=== PATIENT | male | born 1955 | race Two or more races ===

== ENCOUNTER 2016-12-18 20:57 | Inpatient (IN) | payer OTHER ==
[~2016-12-18] VITALS: Ht 167.6 cm; Wt 122.0 kg
--- NOTE | 2016-12-18 21:15 | NUR ---
61 YO MALE BB SELF. PT IS ALERT X 3, C/O REDNESS AND PAIN ON LEFT LOWER LEG X 2 DAYS. PT AMBULATED TO ER BED WITH STEADY AGIT, SKIN WARMA ND DRY, RR EVEN AND UNLABORED. PT GOWNED, PLACED ON BOTANICAL TECHNICAL OFFICER. AWAITING ORDERS FORM PROVIDER, WILL CONTINUE TO MONITOR
--- NOTE | 2016-12-18 21:17 | NUR ---
MAREN COSTA MPA AT BED SIDE FOR EVAL
[2016-12-18] MEDS ORDERED: VANCOMYCIN 1 GM in IV D5W 250 ML IV STA (21:22)
[2016-12-18] MEDS ORDERED: LEVOFLOXACIN 500 MG /D5W 100ML 500 MG/100 ML PIGGYBACK IV STA (21:22)
[2016-12-18 21:30] LABS: BASOPHILS % (AUTO) 0.2 % (0.0-2.0); EOSINOPHILS # (AUTO) 0.1 /CMM (0.0-0.7); EOSINOPHILS % (AUTO) 1.1 % (0.0-6.0); HEMATOCRIT 41 % (39-51); HEMOGLOBIN 13.2 g/dL (13.5-17.5); LYMPHOCYTES # (AUTO) 2.2 /CMM (0.8-4.8); LYMPHOCYTES % (AUTO) 16.8 % (20.0-44.0); MEAN CORPUSCULAR HEMOGLOBIN 29 PG (26.0-33.0); MEAN CORPUSCULAR HGB CONC 33 g/dl (31.0-36.0); MEAN CORPUSCULAR VOLUME 89 fL (80-96); MONOCYTES # (AUTO) 1.4 /CMM (0.1-1.30); NEUTROPHILS # (AUTO) 9.1 /CMM (1.8-8.9); NEUTROPHILS % (AUTO) 70.9 % (43.0-81.0); PLATELET COUNT (AUTO) 222 /CMM (150-450); RDW COEFFICIENT OF VARIATION 13.2 (11.5-15.0); RED BLOOD CELL COUNT(AUTO) 4.53 MIL/uL (4.5-6.0); WHITE BLOOD COUNT (AUTO) 12.8 K/uL (4.3-11.0)
[2016-12-18] MEDS ORDERED: IV SET PRIMARY PUMP SET 1 EA INFUS.SET MC ONE (21:31)
[2016-12-18] MEDS ORDERED: VANCOMYCIN 1 GM VIAL ONE (21:31)
[2016-12-18] MEDS ORDERED: LEVOFLOXACIN 500 MG /D5W 100ML 100 ML IV ONE (21:31)
[2016-12-18 21:45] LABS: ALBUMIN 3.3 g/dL (3.4-5.0); BILIRUBIN,TOTAL 0.9 mg/dL (0.2-1.0); CALCIUM, SERUM 8.8 mg/dL (8.5-10.1); POTASSIUM 3.3 mmol/L (3.5-5.1); TOTAL PROTEIN, SERUM 8.3 g/dL (6.4-8.2)
[2016-12-18 21:46] LABS: INR 0.96 (0.87-1.13)
[2016-12-18 21:47] LABS: TROPONIN I 0.119 ng/mL (0.00-0.056)
--- NOTE | 2016-12-18 21:52 | NUR ---
URINE SAMPLE OBTAINED AND SENT TO LAB. MEDICATED PT ORDERED
[2016-12-18 22:01] LABS: ALBUMIN 3.4 g/dL (3.4-5.0); BILIRUBIN,DIRECT 0.2 mg/dL (0.0-0.2); BILIRUBIN,TOTAL 0.9 mg/dL (0.2-1.0); TOTAL PROTEIN, SERUM 8.5 g/dL (6.4-8.2)
[2016-12-18] MEDS ORDERED: ASPIRIN 325 MG TABLET PO STA (22:08)
[2016-12-18] MEDS ORDERED: ASPIRIN 325 MG TABLET ONE (22:16)
[2016-12-18 22:21] LABS: APPEARANCE,URINE CLEAR (CLEAR); BILIRUBIN,URINE NEGATIVE (NEGATIVE); BLOOD, URINE 1+ Ery/uL (NEGATIVE); COLOR,URINE YELLOW (YELLOW); KETONES,URINE TRACE (NEGATIVE); LEUKOCYTE ESTERASE ,URINE NEGATIVE (NEGATIVE); NITRITE, URINE NEGATIVE (NEGATIVE); PROTEIN,URINE NEGATIVE (NEGATIVE); UGLUCOSE NEGATIVE (NEGATIVE); UROBILINOGEN,URINE 0.2 EU/dL (0.2)
--- NOTE | 2016-12-18 22:24 | NUR ---
PAGED DR SORAYA COX
[2016-12-18 22:32] LABS: BACTERIA,URINE None seen /HPF (None Seen); SQUAMOUS EPITHELIAL CELL,UR Rare /HPF (None Seen); WBC,URINE 0-2 /HPF (0-3)
[2016-12-18] MEDS ORDERED: LOSA1TAB35 PO (22:33)
[2016-12-18] MEDS ORDERED: CARV3.122 PO (22:33)
[2016-12-18] MEDS ORDERED: SIMV10TA6 PO (22:35)
[2016-12-18] MEDS ORDERED: TAMS0.4C34 PO (22:35)
[2016-12-18] MEDS ORDERED: RANI150C4 PO (22:35)
[2016-12-18] MEDS ORDERED: ASPI-605 PO (22:35)
[2016-12-18 22:50] VITALS: BP 143/75
--- NOTE | 2016-12-18 22:50 | NUR ---
TELE/ROOM SERVICE MANAGER; ADMITTED 61 YEARS OLD MALE PT FROM ER VIA GURNEY ACCOMPANIED BY ER MALE STAFF. PT IS ALERT AND ORIENTED. ECUADOREAN SPEAKING. WITH HL ON LAC # 18 INTACT AND PATENT. PT INFORMATIONS GIVEN BY THE SON KYLE. PT WITH SWELLING ON LT LOWER LEG AND WITH REDNESS. PT INSTRUCTED TO CALL FOR HELP. CALL LIGHT AND URINAL WITHIN REACH. DENIES PAIN. PT. ALSO HAS ELEVATED TROPONIN. DX; NSTEMI, CELLULITIS LT LOWER LEG. LT LOWER ELEVATED WITH PILLOW. PLACED ON BRIM POUNCER. WILL CONTINUE TO MONITOR.
--- NOTE | 2016-12-18 22:59 | NUR ---
TRANSPORTED PT TO TELE BED WITHOUT INCIDENT
[2016-12-18] MEDS ORDERED: Z GUARD REMEDY 2 OZ OINT TP PRN (23:30)
[2016-12-18] MEDS ORDERED: ONDANSETRON HCL/PF 4 MG/2 ML VIAL IVP PRN (23:30)
[2016-12-18] MEDS ORDERED: ENOXAPARIN SODIUM 40 MG/0.4 ML DISP.SYRIN SQ SCH (23:30)
[2016-12-18] MEDS ORDERED: ZOLPIDEM TARTRATE 5 MG TABLET PO PRN (23:30)
[2016-12-18] MEDS ORDERED: ENOXAPARIN SODIUM 40 MG/0.4 ML DISP.SYRIN SQ ONE (23:49)
[2016-12-18] MEDS ORDERED: POTASSIUM CHLORIDE 20 MEQ TAB.PRT.SR PO ONE (23:50)
[2016-12-19] MEDS: POTASSIUM CHLORIDE 20 MEQ TAB.PRT.SR PO SCH ×4 (00:38→13:06)
[2016-12-19 03:21] LABS: BASOPHILS # (AUTO) 0.1 /CMM (0.0-0.2); BASOPHILS % (AUTO) 0.5 % (0.0-2.0); EOSINOPHILS # (AUTO) 0.2 /CMM (0.0-0.7); EOSINOPHILS % (AUTO) 1.3 % (0.0-6.0); HEMATOCRIT 37 % (39-51); HEMOGLOBIN 12.4 g/dL (13.5-17.5); LYMPHOCYTES # (AUTO) 2.8 /CMM (0.8-4.8); LYMPHOCYTES % (AUTO) 22.4 % (20.0-44.0); MEAN CORPUSCULAR HEMOGLOBIN 30 PG (26.0-33.0); MEAN CORPUSCULAR HGB CONC 34 g/dl (31.0-36.0); MEAN CORPUSCULAR VOLUME 89 fL (80-96); MONOCYTES # (AUTO) 1.6 /CMM (0.1-1.30); MONOCYTES % (AUTO) 13.2 % (2.0-12.0); NEUTROPHILS # (AUTO) 7.7 /CMM (1.8-8.9); NEUTROPHILS % (AUTO) 62.6 % (43.0-81.0); PLATELET COUNT (AUTO) 214 /CMM (150-450); RDW COEFFICIENT OF VARIATION 14.4 (11.5-15.0); RED BLOOD CELL COUNT(AUTO) 4.18 MIL/uL (4.5-6.0); WHITE BLOOD COUNT (AUTO) 12.4 K/uL (4.3-11.0)
[2016-12-19 04:02] LABS: ALBUMIN 3.3 g/dL (3.4-5.0); BILIRUBIN,TOTAL 0.9 mg/dL (0.2-1.0); CREATININE 0.9 mg/dL (0.6-1.3); PHOSPHORUS 3.7 mg/dL (2.5-4.9); TOTAL PROTEIN, SERUM 8.6 g/dL (6.4-8.2)
[2016-12-19 04:11] LABS: POTASSIUM 3.1 mmol/L (3.5-5.1)
[2016-12-19 04:15] LABS: FREE PSA 0.83 ng/mL (0.00-45); PROSTATE SPECIFIC ANTIGEN SCR 7.59 ng/mL (0.00-4.00)
[2016-12-19 04:25] VITALS: BP 126/76
[2016-12-19 04:59] LABS: THYROID STIMULATING HORMONE 2.75 uIU/mL (0.358-3.74)
--- NOTE | 2016-12-19 07:00 | NUR ---
TELE/BRAND ADVOCATE; PT SLEPT FAIRLY. PT ON SR 70. DENIES PAIN. CONTINUE TO MONITOR . CALL LIGHT AND URINAL WITHIN REACH. WILL ENDORSE TO THE DAY SHIFT NURSE.
[2016-12-19 07:08] VITALS: BP 130/65
--- NOTE | 2016-12-19 07:15 | NUR ---
LANDING SIGNAL OFFICER OPENING NOTES RECEIVED PT. FROM NIGHTSHIFT NURSE IN STABLE CONDITION. PT. IS A/O X4. NO SOB OR SIGNS OF DISTRESS NOTED. PT. DENIES ANY PAIN TO LEFT LOWER EXTREMITY OR IN GENERAL AT THIS TIME. PT. DENIES ANY CHEST PAIN AT THIS TIME. PT IS SINUS RHYTHM ON THE MONITOR WITH A HR OF 71. IV PRESENT ON LEFT AC 18G PATENT AND INTACT. BED INLOW LOCKED POSITION, SIDE RAILS UP X2, CALL LIGHT WITHIN REACH. WILL CONTINUE TO MONITOR.
[2016-12-19] MEDS ORDERED: FEE PK DOSING 1 MIN EA MC ONE (08:33)
[2016-12-19] MEDS: HYDROCODONE/APAP 10/325MG 1 EA TABLET PO PRN ×3 (08:57→21:16)
[2016-12-19] MEDS: PANTOPRAZOLE 40 MG TABLET.DR PO SCH (08:59)
[2016-12-19] MEDS: ASPIRIN EC 81 MG TABLET.DR PO SCH (08:59)
[2016-12-19] MEDS: LOSARTAN POTASSIUM 50 MG TABLET PO SCH (08:59)
[2016-12-19] MEDS: SIMVASTATIN 10 MG TABLET PO SCH (09:00)
[2016-12-19] MEDS: TAMSULOSIN 0.4 MG CAP.SR.24H PO SCH (09:00)
[2016-12-19] MEDS: HYDROCHLOROTHIAZIDE 25 MG TABLET PO SCH (09:00)
[2016-12-19] MEDS ORDERED: BUMETANIDE INJ 0.25 MG/ML VIAL IV SCH (09:00)
[2016-12-19] MEDS: CARVEDILOL 3.125 MG TABLET PO SCH ×2 (09:00→17:15)
[2016-12-19] MEDS ORDERED: SECONDARY IV SET 1 EA INFUS.SET MC ONE (11:19)
[2016-12-19] MEDS ORDERED: IV NS 0.9% 250 ML IV ONE (11:19)
[2016-12-19] MEDS: VANCOMYCIN 1.25 GM in IV D5W 500 ML IV SCH ×2 (11:41→22:21)
[2016-12-19 12:00] VITALS: BP 127/61
[2016-12-19 16:00] VITALS: BP 116/59
--- NOTE | 2016-12-19 18:56 | NUR ---
BOOK SALESMAN CLOSING NOTES PT. REMAINS IN STABLE CONDITION. ALL NEEDS WERE MET DURING SHIFT AND ORDERS CARRIED OUT ACCORDINGLY. PT. DENIES ANY PAIN AT THIS TIME. ALL SAFETY MEASURES IN PLACE. WILL ENDORSE TO NIGHTSHIFT NURSE FOR ALVARADO
--- NOTE | 2016-12-19 19:40 | NUR ---
RN OPENING NOTES RECEIVED REPORT FROM MARGUERITE RN, CATHERINETU. FOUND Pt AWAKE, RESTING IN BED. FAMILY VISITING AT BEDSIDE. Pt IS A/OX4, VERBAL, ABLE TO MAKE NEEDS KNOWN. NO S/S OF ACUTE DISTRESS OR SOB NOTED. IV ACCESS ON LAC #18G, SL. ON TELE WITH SR 70's. Pt C/O PAIN ON LT LEG, WILL GIVE PAIN MED WHEN DUE. SAFETY MEASURES IN PLACE. BED LOW, LOCKED, HOB ELEVATED, SIDE RAILS UP, CALL LIGHT AND BEDSIDE TABLE WITHIN REACH. WILL CONTINUE TO MONITOR Pt THROUGHOUT THE NIGHT FOR SAFETY.
[2016-12-19 20:00] VITALS: BP 116/66
[2016-12-19 20:14] VITALS: BP 116/66
[2016-12-19] MEDS: ENOXAPARIN SODIUM 40 MG/0.4 ML DISP.SYRIN SQ SCH (21:18)
[2016-12-20 01:02] VITALS: BP 118/57
[2016-12-20] MEDS: HYDROCODONE/APAP 10/325MG 1 EA TABLET PO PRN ×3 (02:41→15:42)
[2016-12-20 04:44] VITALS: BP 125/86
[2016-12-20 06:36] LABS: CALCIUM, SERUM 8.5 mg/dL (8.5-10.1); CREATININE 0.9 mg/dL (0.6-1.3); POTASSIUM 3.6 mmol/L (3.5-5.1)
--- NOTE | 2016-12-20 06:40 | NUR ---
RN CLOSING NOTES NO SIGNIFICANT CHANGES TO Pt's CONDITION. ALL NEEDS MET AND ATTENDED TO. SAFETY MEASURES IN PLACE. WILL ENDORSE TO DAYSHIJUAN C RN FOR Pt's ALVARADO. TELE READING SR 70's.
--- NOTE | 2016-12-20 07:15 | NUR ---
CASE FITTER OPENING NOTES RECEIVED PT. FROM NIGHTSHIFT NURSE IN STABLE CONDITION. PT. IS A/O X4. NO SOB OR SIGNS OF DISTRESS NOTED. PT. DENIES ANY PAIN AT THIS TIME. PT. DENIES ANY CHEST PAIN AT THIS TIME. PT IS SINUS RHYTHM ON THE MONITOR WITH A HR OF 73. IV PRESENT ON LEFT AC 18G PATENT AND INTACT. BED IN LOW LOCKED POSITION, SIDE RAILS UP X2, CALL LIGHT WITHIN REACH. WILL CONTINUE TO MONITOR.
[2016-12-20 08:00] VITALS: BP 140/62
[2016-12-20] MEDS: POTASSIUM CHLORIDE 20 MEQ TAB.PRT.SR PO SCH (08:06)
[2016-12-20] MEDS: TAMSULOSIN 0.4 MG CAP.SR.24H PO SCH (08:06)
[2016-12-20] MEDS: PANTOPRAZOLE 40 MG TABLET.DR PO SCH (08:06)
[2016-12-20] MEDS: HYDROCHLOROTHIAZIDE 25 MG TABLET PO SCH (08:06)
[2016-12-20] MEDS: LOSARTAN POTASSIUM 50 MG TABLET PO SCH (08:07)
[2016-12-20] MEDS: ASPIRIN EC 81 MG TABLET.DR PO SCH (08:07)
[2016-12-20] MEDS: SIMVASTATIN 10 MG TABLET PO SCH (08:07)
[2016-12-20] MEDS: CARVEDILOL 3.125 MG TABLET PO SCH ×2 (08:07→16:41)
[2016-12-20 08:58] LABS: BASOPHILS % (AUTO) 0.3 % (0.0-2.0); EOSINOPHILS # (AUTO) 0.2 /CMM (0.0-0.7); HEMATOCRIT 36 % (39-51); HEMOGLOBIN 12.2 g/dL (13.5-17.5); LYMPHOCYTES # (AUTO) 2.5 /CMM (0.8-4.8); MEAN CORPUSCULAR HEMOGLOBIN 30 PG (26.0-33.0); MEAN CORPUSCULAR HGB CONC 34 g/dl (31.0-36.0); MEAN CORPUSCULAR VOLUME 89 fL (80-96); MONOCYTES # (AUTO) 1.6 /CMM (0.1-1.30); MONOCYTES % (AUTO) 12.9 % (2.0-12.0); NEUTROPHILS % (AUTO) 64.8 % (43.0-81.0); PLATELET COUNT (AUTO) 193 /CMM (150-450); RDW COEFFICIENT OF VARIATION 14.2 (11.5-15.0); RED BLOOD CELL COUNT(AUTO) 4.08 MIL/uL (4.5-6.0); WHITE BLOOD COUNT (AUTO) 12.3 K/uL (4.3-11.0)
[2016-12-20] MEDS ORDERED: FUROSEMIDE 20 MG/2 ML VIAL IV ONE (10:00)
[2016-12-20] MEDS: VANCOMYCIN 1.25 GM in IV D5W 500 ML IV SCH ×2 (10:10→23:23)
[2016-12-20 12:15] LABS: *SPE A/G RATIO 0.8 (0.7-1.7); *SPE ALBUMIN 3.1 g/dL (2.9-4.4); *SPE ALPHA-1-GLOBULIN 0.4 g/dL (0.0-0.4); *SPE ALPHA-2-GLOBULIN 1.1 g/dL (0.4-1.0); *SPE BETA GLOBULIN 1.1 g/dL (0.7-1.3); *SPE GLOBULIN, TOTAL 3.7 g/dL (2.2-3.9); *SPE M-SPIKE Not Observed g/dL (Not Observed); *SPE PROTEIN TOTAL 6.8 g/dL (6.0-8.5); *SPEGAMMA GLOBULIN 1.2 g/dL (0.4-1.8)
[2016-12-20 16:00] VITALS: BP 124/54
--- NOTE | 2016-12-20 18:25 | NUR ---
MS RN CLOSING NOTES PT. REMAINS IN STABLE CONDITION. ALL NEEDS WERE MET AND ANTICIPATED FOR DURING SHIFT ALL ORDERS WERE CARRIED OUT ACCORDINGLY. PT. DENIES ANY PAIN AT THIS TIME. ALL SAFETY MEASURES IN PLACE. THERE WERE NO ACUTE CHANGES IN CONDITION DURING SHIFT. WILL ENDORSE TO NIGHTSHIFT NURSE FOR ALVARADO
--- NOTE | 2016-12-20 19:15 | NUR ---
RN OPEN NOTES RECEIVED PATIENT AWAKE IN BED WITH FAMILY AT BEDSIDE. A/O X3. NO SIGNS OF DISTRESS OR DISCOMFORT. BREATHING EVEN AND UNLABORED. DENIES ANY PAIN AT THIS TIME. IV ACCESS IN LAC, PATENT AND INTACT, NO SIGNS OF REDNESS OR INFILTRATION. BED IN LOW LOCKED POSITION WITH SIDE RAILS X2. CALL LIGHT WITHIN REACH. WILL CONTINUE TO MONITOR.
[2016-12-20 20:00] VITALS: BP 138/60
[2016-12-20 20:13] VITALS: BP 138/60
[2016-12-20] MEDS: ENOXAPARIN SODIUM 40 MG/0.4 ML DISP.SYRIN SQ SCH (21:23)
[2016-12-20] MEDS ORDERED: IV NS 0.9% 250 ML IV ONE (23:22)
[2016-12-21 07:30] LABS: CALCIUM, SERUM 8.8 mg/dL (8.5-10.1); CREATININE 1.1 mg/dL (0.6-1.3); POTASSIUM 3.7 mmol/L (3.5-5.1)
--- NOTE | 2016-12-21 07:52 | NUR ---
RN CLOSING NOTES PATIENT AWAKE IN BED WITH FAMILY AT BEDSIDE. A/O X3. NO SIGNS OF DISTRESS OR DISCOMFORT. BREATHING EVEN AND UNLABORED. DENIES ANY PAIN AT THIS TIME. IV ACCESS IN LAC, PATENT AND INTACT, NO SIGNS OF REDNESS OR INFILTRATION. ALL NEEDS MET. NO SIGNIFICANT CHANGES THROUGH THE NIGHT. BED IN LOW LOCKED POSITION WITH SIDE RAILS X2. CALL LIGHT WITHIN REACH. ENDORSED TO AM SHIFT FOR ALVARADO.
[2016-12-21 08:00] VITALS: BP 135/71
--- NOTE | 2016-12-21 08:00 | NUR ---
RECEIVED PATIENT AWAKE IN BED. A/O X3. NO SIGNS OF DISTRESS OR DISCOMFORT. BREATHING EVEN AND UNLABORED. DENIES ANY PAIN AT THIS TIME. IV ACCESS IN LAC NOTICED TO BE DISLODGED. REPLACED IV IN THE LEFT HAND 22G S/L, PATENT AND INTACT, NO SIGNS OF REDNESS OR INFILTRATION. BED IN LOW LOCKED POSITION WITH SIDE RAILS X2. CALL LIGHT WITHIN REACH. WILL CONTINUE TO MONITOR.
[2016-12-21 08:54] LABS: BASOPHILS % (AUTO) 0.2 % (0.0-2.0); EOSINOPHILS # (AUTO) 0.2 /CMM (0.0-0.7); EOSINOPHILS % (AUTO) 1.2 % (0.0-6.0); HEMATOCRIT 35 % (39-51); HEMOGLOBIN 11.7 g/dL (13.5-17.5); LYMPHOCYTES # (AUTO) 2.1 /CMM (0.8-4.8); LYMPHOCYTES % (AUTO) 16.8 % (20.0-44.0); MEAN CORPUSCULAR HEMOGLOBIN 30 PG (26.0-33.0); MEAN CORPUSCULAR HGB CONC 33 g/dl (31.0-36.0); MEAN CORPUSCULAR VOLUME 89 fL (80-96); MONOCYTES # (AUTO) 1.5 /CMM (0.1-1.30); MONOCYTES % (AUTO) 12.3 % (2.0-12.0); NEUTROPHILS # (AUTO) 8.7 /CMM (1.8-8.9); NEUTROPHILS % (AUTO) 69.5 % (43.0-81.0); PLATELET COUNT (AUTO) 194 /CMM (150-450); RDW COEFFICIENT OF VARIATION 14.3 (11.5-15.0); RED BLOOD CELL COUNT(AUTO) 3.96 MIL/uL (4.5-6.0); WHITE BLOOD COUNT (AUTO) 12.6 K/uL (4.3-11.0)
[2016-12-21] MEDS ORDERED: MAGNESIUM HYDROXIDE 30 ML UDC PO PRN (09:00)
[2016-12-21] MEDS: PANTOPRAZOLE 40 MG TABLET.DR PO SCH (09:29)
[2016-12-21] MEDS: TAMSULOSIN 0.4 MG CAP.SR.24H PO SCH (09:29)
[2016-12-21] MEDS: DOCUSATE SODIUM 100 MG CAPSULE PO SCH ×2 (09:29→17:51)
[2016-12-21] MEDS: POTASSIUM CHLORIDE 20 MEQ TAB.PRT.SR PO SCH (09:30)
[2016-12-21] MEDS: SIMVASTATIN 10 MG TABLET PO SCH (09:30)
[2016-12-21] MEDS: LOSARTAN POTASSIUM 50 MG TABLET PO SCH (09:31)
[2016-12-21] MEDS: HYDROCODONE/APAP 10/325MG 1 EA TABLET PO PRN ×3 (09:32→22:12)
[2016-12-21] MEDS: ASPIRIN EC 81 MG TABLET.DR PO SCH (09:32)
[2016-12-21] MEDS: CARVEDILOL 3.125 MG TABLET PO SCH ×2 (09:33→17:29)
[2016-12-21] MEDS: HYDROCHLOROTHIAZIDE 25 MG TABLET PO SCH (09:33)
--- NOTE | 2016-12-21 09:45 | NUR ---
NORCO PRN Q4H GIVEN FOR PAIN 8-10. WILL CONTINUE TO MONITOR AND REASSESS.
[2016-12-21] MEDS ORDERED: FUROSEMIDE 40 MG/4 ML VIAL IV ONE (10:30)
[2016-12-21] MEDS: VANCOMYCIN 1.25 GM in IV D5W 500 ML IV SCH (11:35)
[2016-12-21 16:00] VITALS: BP 118/51
--- NOTE | 2016-12-21 17:46 | NUR ---
NORCO PRN Q4H GIVEN FOR PAIN 8-10. WILL CONTINUE TO MONITOR AND REASSESS.
--- NOTE | 2016-12-21 19:30 | NUR ---
MS/RN NOTES PT AWAKE, RESTING COMFORTABLY IN BED WITH FAMILY AT BEDSIDE. ON ROOM AIR, NO SOB OR DISTRESS NOTED. BREATHING EVEN AND UNLABORED. IV TO LEFT HAND PATENT AND INTACT, FLUSHES WELL. BED IN LOW/LOCKED POSITION WITH CALL LIGHT IN REACH. SIDE RAILS UPX2. WILL CONTINUE TO MONITOR
--- NOTE | 2016-12-21 19:34 | NUR ---
RN CLOSING NOTES PATIENT AWAKE IN BED WITH FAMILY AT BEDSIDE. A/O X3. NO SIGNS OF DISTRESS OR DISCOMFORT. BREATHING EVEN AND UNLABORED. PAIN AT THIS TIME 5/10. IV ACCESS IN LEFT HAND 22G, PATENT AND INTACT, NO SIGNS OF REDNESS OR INFILTRATION. ALL NEEDS MET. NO SIGNIFICANT CHANGES THROUGH THE DAY. BED IN LOW LOCKED POSITION WITH SIDE RAILS X2. CALL LIGHT WITHIN REACH. ENDORSED TO PM SHIFT FOR ALVARADO.
[2016-12-21 20:00] VITALS: BP 140/58
[2016-12-21 20:07] VITALS: BP 140/58
[2016-12-21] MEDS ORDERED: SECONDARY IV SET 1 EA INFUS.SET MC ONE (20:24)
[2016-12-21] MEDS: CEFAZOLIN 1 GM in IV NS 0.9% 50 ML IV SCH (20:35)
[2016-12-21] MEDS: ENOXAPARIN SODIUM 40 MG/0.4 ML DISP.SYRIN SQ SCH (20:37)
--- NOTE | 2016-12-21 22:22 | NUR ---
MS/RN NOTES PT COMPLAINING OF PAIN 8/10 TO LEFT LOWER EXTREMITY. ADMINISTERED PRN NORCO 10-325. WILL MONITOR FOR EFFECTIVENESS
[2016-12-22] MEDS: CEFAZOLIN 1 GM in IV NS 0.9% 50 ML IV SCH ×3 (03:37→20:28)
--- NOTE | 2016-12-22 03:41 | NUR ---
MS/RN NOTES PT'S IV BECAME DISLODGED. NEW IV INSERTED TO RIGHT HAND #24.
[2016-12-22 07:01] LABS: CALCIUM, SERUM 8.7 mg/dL (8.5-10.1); CREATININE 1.2 mg/dL (0.6-1.3); POTASSIUM 3.9 mmol/L (3.5-5.1)
--- NOTE | 2016-12-22 07:05 | NUR ---
MS/RN NOTES PT ASLEEP, EASILY AROUSABLE TO NAME. ON ROOM AIR, NO SOB OR DISTRESS NOTED. BREATHING EVEN AND UNLABORED. DENIES PAIN AT THIS TIME. LEFT EXTREMITY ELEVATED. IV TO RIGHT HAND #24 PATENT AND INTACT. ALL NEEDS MET AND ATTENDED. MADE PT COMFORTABLE THROUGHOUT SHIFT. BED IN LOW/LOCKED POSITION WITH CALL LIGHT IN REACH. SIDE RAILS UPX2.WILL ENDORSE TO AM SHIFT ALVARADO.
[2016-12-22] MEDS: HYDROCODONE/APAP 10/325MG 1 EA TABLET PO PRN ×2 (07:46→18:04)
--- NOTE | 2016-12-22 07:57 | NUR ---
RN MS NOTES PT IN BED, AWAKE, ALERT AND ORIENTED, WITH COMPLAINT OF LEFT LEG PAIN, PAIN MEDICATION GIVEN ORDERED, CALL LIGHT WITHIN REACH, NEEDS ATTENDED.
[2016-12-22 08:00] VITALS: BP 137/71
[2016-12-22 09:12] LABS: BASOPHILS % (AUTO) 0.3 % (0.0-2.0); EOSINOPHILS # (AUTO) 0.2 /CMM (0.0-0.7); EOSINOPHILS % (AUTO) 1.8 % (0.0-6.0); HEMATOCRIT 37 % (39-51); HEMOGLOBIN 12.4 g/dL (13.5-17.5); LYMPHOCYTES # (AUTO) 1.7 /CMM (0.8-4.8); LYMPHOCYTES % (AUTO) 15.8 % (20.0-44.0); MEAN CORPUSCULAR HEMOGLOBIN 30 PG (26.0-33.0); MEAN CORPUSCULAR HGB CONC 33 g/dl (31.0-36.0); MEAN CORPUSCULAR VOLUME 90 fL (80-96); MONOCYTES # (AUTO) 1.2 /CMM (0.1-1.30); MONOCYTES % (AUTO) 11.2 % (2.0-12.0); NEUTROPHILS # (AUTO) 7.7 /CMM (1.8-8.9); NEUTROPHILS % (AUTO) 70.9 % (43.0-81.0); PLATELET COUNT (AUTO) 219 /CMM (150-450); RDW COEFFICIENT OF VARIATION 14.4 (11.5-15.0); RED BLOOD CELL COUNT(AUTO) 4.15 MIL/uL (4.5-6.0); WHITE BLOOD COUNT (AUTO) 10.9 K/uL (4.3-11.0)
--- NOTE | 2016-12-22 09:13 | NUR ---
RN MS NOTES PT SEEN AND EXAMINED BY MAURISIO KUNZ, PLAN OF CARE DISCUSSED WITH PT, VERBALIZED UNDERSTANDING.
[2016-12-22] MEDS: POTASSIUM CHLORIDE 20 MEQ TAB.PRT.SR PO SCH (09:18)
[2016-12-22] MEDS: SIMVASTATIN 10 MG TABLET PO SCH (09:20)
[2016-12-22] MEDS: ASPIRIN EC 81 MG TABLET.DR PO SCH (09:20)
[2016-12-22] MEDS: DOCUSATE SODIUM 100 MG CAPSULE PO SCH ×2 (09:20→17:51)
[2016-12-22] MEDS: TAMSULOSIN 0.4 MG CAP.SR.24H PO SCH (09:20)
[2016-12-22] MEDS: PANTOPRAZOLE 40 MG TABLET.DR PO SCH (09:20)
[2016-12-22] MEDS: HYDROCHLOROTHIAZIDE 25 MG TABLET PO SCH (09:20)
[2016-12-22] MEDS: LOSARTAN POTASSIUM 50 MG TABLET PO SCH (09:21)
[2016-12-22] MEDS: CARVEDILOL 3.125 MG TABLET PO SCH ×2 (09:21→17:51)
[2016-12-22 16:00] VITALS: BP 141/60
--- NOTE | 2016-12-22 16:43 | NUR ---
RN MS NOTES PT IN BED, ASLEEP, EASY TO AROUSE, ALERT AND ORIENTED, NO COMPLAINT OF PAIN AT THIS TIME, BREATHING PATTERN NORMAL, CALL LIGHT WITHIN REACH, FAMILY AT BEDSIDE.
--- NOTE | 2016-12-22 18:46 | NUR ---
RN MS NOTES PT IN BED, RESTING, PAIN MEDICATION GIVEN FOR PAIN MANAGEMENT, PM MEDICATION GIVEN, CALL LIGHT WITHIN REACH, PM CARE RENDERED, ALL NEEDS ATTENDED.
--- NOTE | 2016-12-22 19:31 | NUR ---
MS RN OPENING NOTES: PATIENT IN BED, AOX3, ON ROOM AIR, BREATHING EVEN AND UNLABORED. APPEARS CALM AND IN NO DISTRESS, STATES THAT HE HAS ONLY SLIGHT PAIN OVER LEFT LOWER EXTREMITY WHEN TRYING TO WALK, BUT AT REST, DENIES PAIN. PIV OVER R HAND G24 INTACT AND PATENT TO FLUSH. PROVIDED FOR COMFORT AND SAFETY. WILL CONT TO MONITOR.
[2016-12-22 20:00] VITALS: BP 120/59
[2016-12-22] MEDS: ENOXAPARIN SODIUM 40 MG/0.4 ML DISP.SYRIN SQ SCH (20:35)
[2016-12-22 20:39] VITALS: BP 120/59
[2016-12-22 22:00] VITALS: BP 120/59
[2016-12-23] MEDS: HYDROCODONE/APAP 10/325MG 1 EA TABLET PO PRN ×4 (02:07→20:47)
--- NOTE | 2016-12-23 02:14 | NUR ---
RN NOTES: PT COMPLAINED OF 8/10 PAIN OVER LEFT LOWER LEG. ADMINISTERED NORCO 10-325 MG PO PRN. WILL CONT TO MONITOR.
[2016-12-23] MEDS: CEFAZOLIN 1 GM in IV NS 0.9% 50 ML IV SCH ×3 (03:54→20:15)
--- NOTE | 2016-12-23 06:46 | NUR ---
MS RN CLOSING NOTES: PATIENT IN BED, AOX3, ON ROOM AIR, BREATHING EVEN AND UNLABORED. APPEARS CALM AND IN NO DISTRESS, BUT COMLPAINING OF PAIN OVER LLE SCALED AT 3/10 AT THIS TIME. MAINTAINED ELEVATED. PIV OVER R HAND G 24 INTACT AND PATENT TO FLUSH. PROVIDED FOR COMFORT AND SAFETY. DUE MEDS GIVEN. NO ACUTE CHANGE IN CONDITION NOTED THROUGH SHIFT. WILL ENDORSE TO AM RN FOR ALVARADO.
--- NOTE | 2016-12-23 07:20 | NUR ---
RN OPEN NOTES RECEIVED REPORT FROM VENEER JOINTER OPERATOR. PATIENT IS IN BED WITH HIS EYES CLOSED. AROUSE TO NAME AND TOUCH. NO SIGNS AND SYMPTOMS OF DISTRESS. BED IN LOW POSITION, LOCKED AND TWO SIDE RAILS ARE UP. WILL CONTINUE TO MONITOR AND ASSESS PATIENT THROUGH OUT MY SHIFT.
[2016-12-23 08:00] VITALS: BP 122/75
[2016-12-23] MEDS: SIMVASTATIN 10 MG TABLET PO SCH (08:58)
[2016-12-23] MEDS: CARVEDILOL 3.125 MG TABLET PO SCH ×2 (08:58→17:22)
[2016-12-23] MEDS: DOCUSATE SODIUM 100 MG CAPSULE PO SCH ×2 (08:58→17:21)
[2016-12-23] MEDS: LOSARTAN POTASSIUM 50 MG TABLET PO SCH (08:59)
[2016-12-23] MEDS: ASPIRIN EC 81 MG TABLET.DR PO SCH (09:00)
[2016-12-23] MEDS: POTASSIUM CHLORIDE 20 MEQ TAB.PRT.SR PO SCH (09:00)
[2016-12-23] MEDS: PANTOPRAZOLE 40 MG TABLET.DR PO SCH (09:00)
[2016-12-23] MEDS: TAMSULOSIN 0.4 MG CAP.SR.24H PO SCH (09:00)
[2016-12-23] MEDS: HYDROCHLOROTHIAZIDE 25 MG TABLET PO SCH (09:00)
[2016-12-23 12:13] LABS: BASOPHILS % (AUTO) 0.3 % (0.0-2.0); EOSINOPHILS # (AUTO) 0.1 /CMM (0.0-0.7); EOSINOPHILS % (AUTO) 1.3 % (0.0-6.0); HEMATOCRIT 34 % (39-51); HEMOGLOBIN 11.4 g/dL (13.5-17.5); LYMPHOCYTES # (AUTO) 1.5 /CMM (0.8-4.8); LYMPHOCYTES % (AUTO) 14.4 % (20.0-44.0); MEAN CORPUSCULAR HEMOGLOBIN 30 PG (26.0-33.0); MEAN CORPUSCULAR HGB CONC 33 g/dl (31.0-36.0); MEAN CORPUSCULAR VOLUME 89 fL (80-96); MONOCYTES # (AUTO) 0.6 /CMM (0.1-1.30); MONOCYTES % (AUTO) 5.8 % (2.0-12.0); NEUTROPHILS # (AUTO) 7.9 /CMM (1.8-8.9); NEUTROPHILS % (AUTO) 78.2 % (43.0-81.0); PLATELET COUNT (AUTO) 245 /CMM (150-450); RDW COEFFICIENT OF VARIATION 14.4 (11.5-15.0); RED BLOOD CELL COUNT(AUTO) 3.84 MIL/uL (4.5-6.0); WHITE BLOOD COUNT (AUTO) 10.1 K/uL (4.3-11.0)
[2016-12-23 12:38] LABS: CALCIUM, SERUM 8.6 mg/dL (8.5-10.1); CREATININE 1.5 mg/dL (0.6-1.3); POTASSIUM 3.8 mmol/L (3.5-5.1)
[2016-12-23 16:06] VITALS: BP 140/66
[2016-12-23] MEDS: LACTOBACILLUS RHAMNOSUS GG 1 EACH CAP.SPRINK PO SCH (17:21)
--- NOTE | 2016-12-23 18:32 | NUR ---
RN CLOSING NOTES PATIENT IS IN BED, ALERT AND ORIENTED TO NAME, PLACE AND TIME. FAMILY AT BEDSIDE. NO SIGNS AND SYMPTOMS OF DISTRESS. PAIN LEVEL 7/[address] SCAN OF LOWER EXTREMITY COMPLETED AND RESULTED. BED IN LOW POSITION, LOCKED AND TWO SIDE RAILS ARE UP. PATIENT KEPT CLEAN AND SAFE. WILL ENDORSE TO CHAR PULLER NURSE.
--- NOTE | 2016-12-23 19:30 | NUR ---
RN NOTES RECEIVED PATIENT UP IN BED. AO X 3, ABLE TO MAKE NEEDS KNOWN. NO ACUTE DISTRESS NOTED. IV SITE PATENT, INTACT; FLUSHED. ON LOW BED WITH BILATERAL UPPER SIDE RAILS UP. CALL LIGHT WITHIN EASY REACH. WILL CONTINUE TO MONITOR.
[2016-12-23 20:00] VITALS: BP 123/69
[2016-12-23] MEDS: ENOXAPARIN SODIUM 40 MG/0.4 ML DISP.SYRIN SQ SCH (20:21)
[2016-12-24] MEDS: CEFAZOLIN 1 GM in IV NS 0.9% 50 ML IV SCH (04:12)
--- NOTE | 2016-12-24 06:06 | NUR ---
RN NOTES PATIENT ASLEEP, EASILY AROUSABLE. RESPIRATIONS EVEN. NO SIGNS OF PAIN NOTED. DUE MEDS GIVEN WITH NO ASE NOTED. NEEDS ATTENDED. SAFETY PRECAUTIONS AND COMFORT MEASURES IN PLACE. WILL GIVE REPORT TO DAY SHIFT FOR CONTINUITY OF CARE.
[2016-12-24 06:43] LABS: BASOPHILS % (AUTO) 0.3 % (0.0-2.0); EOSINOPHILS # (AUTO) 0.1 /CMM (0.0-0.7); EOSINOPHILS % (AUTO) 1.3 % (0.0-6.0); HEMATOCRIT 35 % (39-51); HEMOGLOBIN 11.8 g/dL (13.5-17.5); LYMPHOCYTES # (AUTO) 1.7 /CMM (0.8-4.8); LYMPHOCYTES % (AUTO) 15.3 % (20.0-44.0); MEAN CORPUSCULAR HEMOGLOBIN 30 PG (26.0-33.0); MEAN CORPUSCULAR HGB CONC 34 g/dl (31.0-36.0); MEAN CORPUSCULAR VOLUME 89 fL (80-96); MONOCYTES # (AUTO) 1.2 /CMM (0.1-1.30); MONOCYTES % (AUTO) 10.1 % (2.0-12.0); NEUTROPHILS # (AUTO) 8.3 /CMM (1.8-8.9); PLATELET COUNT (AUTO) 264 /CMM (150-450); RDW COEFFICIENT OF VARIATION 14.7 (11.5-15.0); RED BLOOD CELL COUNT(AUTO) 3.95 MIL/uL (4.5-6.0); WHITE BLOOD COUNT (AUTO) 11.4 K/uL (4.3-11.0)
[2016-12-24 07:03] LABS: CALCIUM, SERUM 8.6 mg/dL (8.5-10.1); CREATININE 1.5 mg/dL (0.6-1.3)
--- NOTE | 2016-12-24 07:18 | NUR ---
MS/RN NOTES RECEIVED PT AWAKE IN BED IN NO ACUTE SIGNS OF DISTRESS. ALERT AND ORIENTED X3, NO C/O PAIN OR DISCOMFORTS VOICED AT THIS TIME. ON ROOM AIR, BREATHING EVEN AND UNLABORED. IV ACCESS ON LEFT HAND PATENT AND INTACT. BED IN LOW POSITION AND LOCKED. CALL LIGHT IN REACH WITH SIDE RAILS UPX2. WILL MAINTAIN ALL SAFETY MEASURES AND WILL CONTINUE TO MONITOR PT ACCORDINGLY.
[2016-12-24 08:00] VITALS: BP 137/69
[2016-12-24] MEDS: PANTOPRAZOLE 40 MG TABLET.DR PO SCH (08:37)
[2016-12-24] MEDS: DOCUSATE SODIUM 100 MG CAPSULE PO SCH ×2 (08:37→16:48)
[2016-12-24] MEDS: SIMVASTATIN 10 MG TABLET PO SCH (08:37)
[2016-12-24] MEDS: TAMSULOSIN 0.4 MG CAP.SR.24H PO SCH (08:37)
[2016-12-24] MEDS: POTASSIUM CHLORIDE 20 MEQ TAB.PRT.SR PO SCH (08:38)
[2016-12-24] MEDS: ASPIRIN EC 81 MG TABLET.DR PO SCH (08:38)
[2016-12-24] MEDS: LACTOBACILLUS RHAMNOSUS GG 1 EACH CAP.SPRINK PO SCH ×2 (08:38→16:48)
[2016-12-24] MEDS: LOSARTAN POTASSIUM 50 MG TABLET PO SCH (08:39)
[2016-12-24] MEDS: HYDROCHLOROTHIAZIDE 25 MG TABLET PO SCH (08:39)
[2016-12-24] MEDS: CARVEDILOL 3.125 MG TABLET PO SCH ×2 (08:40→16:48)
[2016-12-24] MEDS: HYDROCODONE/APAP 10/325MG 1 EA TABLET PO PRN ×2 (08:57→16:48)
[2016-12-24] MEDS: LINEZOLID 600 MG TABLET PO SCH ×2 (10:29→20:27)
[2016-12-24 16:00] VITALS: BP 125/70
--- NOTE | 2016-12-24 19:10 | NUR ---
MR/RN CLOSING NOTES PATIENT RESTING IN BED WITH FAMILY AT BEDSIDE. ALERT AND ORIENTED X3, C/O PAIN TO LEFT LOWER LEG WITH INTENSITY OF 8/10 THIS TOUR, PRN NORCO 10/325MG GIVEN WITH POSITIVE RESULTS. ON ROOM AIR, BREATHING EVEN AND UNLABORED. ALL DUE MEDS GIVEN ORDERED AND TOLERATED. IV ACCESS TO LEFT HAND PATENT AND INTACT. BED IN LOW POSITION AND LOCKED. CALL LIGHT IN REACH WITH SIDE RAILS UPX2. ALL SAFETY MEASURES MAINTAINED. ALL NEEDS AND CARE PROVIDED WELL. ENDORSED TO EAR PULL MACHINE OPERATOR NURSE FOR ALVARADO.
--- NOTE | 2016-12-24 19:25 | NUR ---
RN NOTES RECEIVED PT AWAKE, HOB ELEVATED, NO SOB, NOT IN DISTRESS, ON ROOM AIR AND TOLERATED WELL. PT ALERT AND ORIENTED X3, PAIN ON LEFT LOWER LEG AT TOLERABLE LEVEL AT THIS TIME. IV ACCESS ON LEFT HAND INTACT AND FLUSHES WELL. LEFT LOWER LEG NOTED SWOLLEN, RED AND WARMTH TO TOUCH AND KEPT ELEVATED ON PILLOWS. KEPT BED IN THE LOWEST POSITION, LOCKED, SIDE RAILS UP X2 WITH CALL LIGHT WITHIN REACH. WILL CONTINUE TO MONITOR PT.
[2016-12-24 20:00] VITALS: BP 137/71
[2016-12-24] MEDS: ENOXAPARIN SODIUM 40 MG/0.4 ML DISP.SYRIN SQ SCH (20:28)
[2016-12-24 22:00] VITALS: BP 137/71
[2016-12-25] MEDS: HYDROCODONE/APAP 10/325MG 1 EA TABLET PO PRN ×2 (00:15→09:20)
--- NOTE | 2016-12-25 00:15 | NUR ---
RN NOTES PT COMPLAINS OF PAIN ON HIS LEFT LOWER LEG 02/23, NORCO 10/325 MG TAB GIVEN PO AND TOLERATED WELL. WILL CONTINUE TO MONITOR PT.
--- NOTE | 2016-12-25 00:30 | NUR ---
RN NOTES TEMP RECHECKED 98.7. WILL CONTINUE TO MONITOR PT.
--- NOTE | 2016-12-25 07:00 | NUR ---
RN NOTES PT ASLEEP, BREATHING REGULAR AND UNLABORED, NO SOB, NOT IN DISTRESS, ON ROOM AIR AND TOLERATED WELL. VITAL SIGNS STABLE, AFEBRILE. KEPT PAIN AT TOLERABLE LEVEL. NO EPISODE OF NAUSEA AND VOMITING NOTED. ALL DUE MEDS GIVEN. KEPT LEFT LOWER LEG ELEVATED AT ALL TIMES. FALL PRECAUTION OBSERVED. WILL ENDORSE TO MORNING RN FOR CONTINUITY OF CARE.
[2016-12-25 07:13] LABS: CALCIUM, SERUM 8.3 mg/dL (8.5-10.1); POTASSIUM 4.3 mmol/L (3.5-5.1)
--- NOTE | 2016-12-25 07:51 | NUR ---
RN MS NOTES RECEIVED ALERT AND ORIENTED X3, NO/C/O PAIN OR DISCOMFORTS AT THIS TIME. ON ROOM AIR, BREATHING EVEN AND UNLABORED. PIV TO LEFT HAND, PATENT AND INTACT, FLUSHES WELL, BED IN LOWEST POSITION AND LOCKED. CALL LIGHT IN REACH WITH SIDE RAILS UPX2. WILL MAINTAIN ALL SAFETY MEASURES AND WILL CONTINUE TO MONITOR PT ACCORDINGLY.
[2016-12-25 08:00] VITALS: BP 138/87
[2016-12-25 08:14] LABS: BASOPHILS % (AUTO) 0.2 % (0.0-2.0); EOSINOPHILS % (AUTO) 0.1 % (0.0-6.0); HEMATOCRIT 36 % (39-51); LYMPHOCYTES # (AUTO) 1.6 /CMM (0.8-4.8); MEAN CORPUSCULAR HEMOGLOBIN 30 PG (26.0-33.0); MEAN CORPUSCULAR HGB CONC 34 g/dl (31.0-36.0); MEAN CORPUSCULAR VOLUME 89 fL (80-96); MONOCYTES # (AUTO) 0.6 /CMM (0.1-1.30); MONOCYTES % (AUTO) 3.9 % (2.0-12.0); NEUTROPHILS # (AUTO) 14.2 /CMM (1.8-8.9); NEUTROPHILS % (AUTO) 85.8 % (43.0-81.0); PLATELET COUNT (AUTO) 262 /CMM (150-450); RDW COEFFICIENT OF VARIATION 14.4 (11.5-15.0); RED BLOOD CELL COUNT(AUTO) 4.01 MIL/uL (4.5-6.0); WHITE BLOOD COUNT (AUTO) 16.5 K/uL (4.3-11.0)
--- NOTE | 2016-12-25 08:30 | NUR ---
RN MS NOTES PATIENT SEEN BY DR. SMALL WITH NEW ORDER FOR PT EVAL, ORDER NOTED AND CARRIED OUT.
[2016-12-25] MEDS: ASPIRIN EC 81 MG TABLET.DR PO SCH (08:57)
[2016-12-25] MEDS: PANTOPRAZOLE 40 MG TABLET.DR PO SCH (08:57)
[2016-12-25] MEDS: DOCUSATE SODIUM 100 MG CAPSULE PO SCH ×2 (08:57→17:42)
[2016-12-25] MEDS: CARVEDILOL 3.125 MG TABLET PO SCH ×2 (08:57→17:44)
[2016-12-25] MEDS: POTASSIUM CHLORIDE 20 MEQ TAB.PRT.SR PO SCH (08:58)
[2016-12-25] MEDS: HYDROCHLOROTHIAZIDE 25 MG TABLET PO SCH (08:58)
[2016-12-25] MEDS: LACTOBACILLUS RHAMNOSUS GG 1 EACH CAP.SPRINK PO SCH ×2 (08:58→17:42)
[2016-12-25] MEDS: LOSARTAN POTASSIUM 50 MG TABLET PO SCH (08:58)
[2016-12-25] MEDS: SIMVASTATIN 10 MG TABLET PO SCH (08:59)
[2016-12-25] MEDS: ACETAMINOPHEN 325 MG TABLET PO PRN ×2 (08:59→17:44)
[2016-12-25] MEDS: LINEZOLID 600 MG TABLET PO SCH ×2 (08:59→20:47)
[2016-12-25] MEDS: TAMSULOSIN 0.4 MG CAP.SR.24H PO SCH (09:17)
[2016-12-25 10:44] LABS: BILIRUBIN,URINE NEGATIVE (NEGATIVE); BLOOD, URINE NEGATIVE Ery/uL (NEGATIVE); COLOR,URINE DARK YELLO (YELLOW); KETONES,URINE NEGATIVE (NEGATIVE); LEUKOCYTE ESTERASE ,URINE TRACE (NEGATIVE); NITRITE, URINE NEGATIVE (NEGATIVE); PH,URINE 5.5 (5.0-8.0); PROTEIN,URINE TRACE mg/dl (NEGATIVE); UGLUCOSE NEGATIVE (NEGATIVE); UROBILINOGEN,URINE 0.2 EU/dL (0.2)
[2016-12-25 10:51] LABS: APPEARANCE,URINE SLIGHTLY CLOUDY (CLEAR)
[2016-12-25 10:54] LABS: CREATININE, URINE 204.5 MG/DL (30.0-125.0); URINE TOTAL PROTEIN 35.7 mg/dL (0-11.9)
[2016-12-25 11:04] LABS: BACTERIA,URINE Few /HPF (None Seen); HYALINE CASTS, URINE Many /LPF (None Seen); RBC,URINE NONE SEEN /HPF (0-2); SQUAMOUS EPITHELIAL CELL,UR None Seen /HPF (None Seen)
[2016-12-25 11:27] LABS: EOSINOPHIL,URINE None Seen
--- NOTE | 2016-12-25 12:00 | NUR ---
RN MS NOTES KEPT ENCOURAGING PATIENT TO ELEVATED LEFT LOWER EXTREMITY, PATIENT HAS EPISODES OF NON-COMPLIANCE, WOULD BE SITTING AT THE EDGE OF THE BED WITH BOTH FEET ON THE FLOOR. EXPLAINED RISKS AND BENEFITS, WILL CONTINUE TO MONITOR.
[2016-12-25 16:00] VITALS: BP 120/53
--- NOTE | 2016-12-25 18:22 | NUR ---
RN MS NOTES SEEN BY PT TODAY, PATIENT NEEDS TO AMBULATE WITH WALKER, PATIENT IS ALERT AND ORIENTED, SHOWERED HIMSELF, INSTRUCTED TO ELEVATE LEFT LEG, NO SHORTNESS OF BREATH, RECEIVED TYLENOL PRN FOR PAIN, FAMILY AT BEDSIDE, PIV WAS DISLODGED, WILL TRY TO RE-INSERT, PER FAMILY TRY LATER. CALL LIGHT WITHIN REACH, SAFETY MEASURES IN PLACED, WILL ENDORSE TO WINDOW AIR CONDITIONER INSTALLER FOR ALVARADO.
--- NOTE | 2016-12-25 19:10 | NUR ---
RN NOTES RECEIVED PT OUT OF BED SITTING IN THE CHAIR AT BEDSIDE WITH FAMILY. PT ALERT AND ORIENTED X3, NO SOB, NOT IN DISTRESS, ON ROOM AIR AND TOLERATED WELL. DENIES PAIN AND DISCOMFORT AT HIS TIME. DENIES NAUSEA AND VOMITING. NO IV ACCESS, WILL INSERT NEW IV LINE. STILL NOTED WITH REDNESS AND SWELLING ON LEFT LOWER LEG. SAFETY MEASURES IN PLACE. WILL CONTINUE TO MONITOR PT.
[2016-12-25 20:00] VITALS: BP 103/67
[2016-12-25] MEDS: ENOXAPARIN SODIUM 40 MG/0.4 ML DISP.SYRIN SQ SCH (20:47)
--- NOTE | 2016-12-25 21:00 | NUR ---
RN NOTES INSERTED NEW IV CATH, INTROCAN ON LEFT WRIST GAUGE #22 WITH GOOD BLOOD RETURN. SECURED WITH TRANSPARENT DRESSING DATED AND SIGNED. PT TOLERATED PROCEDURE WELL.
[2016-12-25 22:00] VITALS: BP 103/67
[2016-12-26 06:44] LABS: BASOPHILS % (AUTO) 0.1 % (0.0-2.0); EOSINOPHILS % (AUTO) 0.1 % (0.0-6.0); HEMATOCRIT 35 % (39-51); HEMOGLOBIN 11.7 g/dL (13.5-17.5); LYMPHOCYTES # (AUTO) 1.7 /CMM (0.8-4.8); LYMPHOCYTES % (AUTO) 9.6 % (20.0-44.0); MEAN CORPUSCULAR HEMOGLOBIN 30 PG (26.0-33.0); MEAN CORPUSCULAR HGB CONC 34 g/dl (31.0-36.0); MEAN CORPUSCULAR VOLUME 89 fL (80-96); MONOCYTES # (AUTO) 0.5 /CMM (0.1-1.30); MONOCYTES % (AUTO) 2.8 % (2.0-12.0); NEUTROPHILS # (AUTO) 15.2 /CMM (1.8-8.9); NEUTROPHILS % (AUTO) 87.4 % (43.0-81.0); PLATELET COUNT (AUTO) 243 /CMM (150-450); RDW COEFFICIENT OF VARIATION 13.9 (11.5-15.0); RED BLOOD CELL COUNT(AUTO) 3.93 MIL/uL (4.5-6.0); WHITE BLOOD COUNT (AUTO) 17.4 K/uL (4.3-11.0)
[2016-12-26 06:45] LABS: ALBUMIN 2.3 g/dL (3.4-5.0); BILIRUBIN,TOTAL 0.7 mg/dL (0.2-1.0); CREATININE 4.7 mg/dL (0.6-1.3); MAGNESIUM 1.7 mg/dL (1.8-2.4); PHOSPHORUS 5.5 mg/dL (2.5-4.9); POTASSIUM 4.6 mmol/L (3.5-5.1); TOTAL PROTEIN, SERUM 7.6 g/dL (6.4-8.2)
--- NOTE | 2016-12-26 06:53 | NUR ---
RN NOTES PT AWAKE, OUT OF BED SITTING IN THE CHAIR, NO SOB, NOT IN DISTRESS, ON ROOM AIR AND TOLERATED WELL. VITAL SIGNS STABLE, AFEBRILE TEMP 98.2. NO COMPLAIN OF PAIN, NO EPISODE OF NAUSEA AND VOMITING NOTED. ALL DUE MEDS GIVEN. KEPT LEFT LOWER LEG ELEVATED AT ALL TIMES. AMBULATES TO THE BATHROOM WITH FWW. FALL PRECAUTION OBSERVED. WILL ENDORSE TO MORNING RN FOR CONTINUITY OF CARE.
--- NOTE | 2016-12-26 07:30 | NUR ---
RN MS NOTES PATIENT IN BED ALERT AND ORIENTED, SITTING ON THE CHAIR, ASSISTED PATIENT BACK TO BED AND ELEVATED LEGS, ENSURE SAFETY AND COMFORT, ALL NEEDS ATTENDED, WILL CONTINUE TO MONITOR PT ACCORDINGLY.
[2016-12-26 08:00] VITALS: BP 98/60
[2016-12-26 09:00] VITALS: BP 98/60
[2016-12-26] MEDS: CARVEDILOL 3.125 MG TABLET PO SCH (09:00)
[2016-12-26] MEDS: LACTOBACILLUS RHAMNOSUS GG 1 EACH CAP.SPRINK PO SCH (09:13)
[2016-12-26] MEDS: ASPIRIN EC 81 MG TABLET.DR PO SCH (09:13)
[2016-12-26] MEDS: DOCUSATE SODIUM 100 MG CAPSULE PO SCH (09:13)
[2016-12-26] MEDS: TAMSULOSIN 0.4 MG CAP.SR.24H PO SCH (09:13)
[2016-12-26] MEDS: LINEZOLID 600 MG TABLET PO SCH (09:13)
[2016-12-26] MEDS: POTASSIUM CHLORIDE 20 MEQ TAB.PRT.SR PO SCH (09:13)
[2016-12-26] MEDS: SIMVASTATIN 10 MG TABLET PO SCH (09:13)
[2016-12-26] MEDS: PANTOPRAZOLE 40 MG TABLET.DR PO SCH (09:14)
--- NOTE | 2016-12-26 10:20 | NUR ---
RN MS NOTES RELAYED LAB RESULTS TO DR. SMALL INCLUDING LOW MAGNESIUM LEVEL AND INFORMED MD RE: PATIENT'S DECREASING BLOOD PRESSURE, NO NEW ORDER FOR REPLACEMENT OF MAG, INSTRUCTED TO MONITOR VITALS, AND MD GAVE AN ORDER TO INSERT A CENTENO CATHETER. ORDER NOTED AND CARRIED OUT. PATIENT AWARE AND AGREED.
--- NOTE | 2016-12-26 11:00 | NUR ---
RN MS NOTES DR. SMALL TALKED TO THE PATIENT WITH FAMILY AT BEDSIDE, AND GRAND-DAUGHTER EXPLAINED THE PATIENT'S CURRENT CONDITION AND TREATMENT, SON VANIA CAME AND DR. SMALL FURTHER DISCUSSED THE PATIENT'S CONDITION AND TREATMENT, SON VERBALIZED UNDERSTANDING.
--- NOTE | 2016-12-26 11:40 | NUR ---
RN MS NOTES SON KATE CAME TO NURSES STATION, SCREAMING, UPSET ABOUT THE PATIENT'S WORSENING CONDITION, INFORMED SON THAT DR. SMALL ALREADY EXPLAINED IN DETAILS TO HIS FAMILY AND THE PATIENT ABOUT HIS CONDITION, KATE CONTINUES TO SCREAM TO ALL THE NURSES AND STAFF, CLAIMING HIS DAD IS NOT BEING TREATED RIGHT AND HE WANTS TO TAKE THE PATIENT HOME AGAINST MEDICAL ADVICE, STAFF MEMBERS TRIED TO TALK TO THE SON BUT HE'S VERY UPSET AND REFUSED TO LISTEN.
--- NOTE | 2016-12-26 12:13 | NUR ---
RN MS NOTES MS. GIPSON TRIED TO TALK TO THE SON AND EXPLAIN, BUT SON REFUSES TO LISTEN. PATIENT IS ALERT AND ORIENTED, NO DISTRESS NOTED, REFUSED DISCHARGE INSTRUCTIONS, DISCHARGE PAPERWORKS PROVIDED AND SIGNED BY SON KATE PER PATIENT'S WISHES, CENTENO CATHETER REMOVED WITH URINE OUTPUT OF 200ML AND NOTED BLOOD IN URINE, FAMILY STATED THEY WILL BRING PATIENT TO HIS PRIMARY CARE PHYSICIAN, INSTRUCTED THE PATIENT AND FAMILY TO MONITOR BLEEDING, PIV REMOVED, REFUSED SKIN ASSESSMENT AND PHOTOS, BELONGINGS RECONCILED, SECURITY ON STAND-BY, LEFT THE FACILITY WITH FAMILY MEMBERS.
--- NOTE | 2016-12-26 12:20 | NUR ---
RN MS NOTES DR. SMALL CAME TO NURSES STATION AND MADE AWARE THAT PATIENT LEFT AGAINST MEDICAL ADVICE.
[2016-12-27 06:09] LABS: COMPLEMENT C3, SERUM 88 mg/dL (82-167)
[2016-12-27 09:21] LABS: COMPLEMENT, TOTAL (CH50) 15 U/mL (42-60)
[2016-12-27 14:16] LABS: *SPE A/G RATIO 0.6 (0.7-1.7); *SPE ALBUMIN 2.5 g/dL (2.9-4.4); *SPE ALPHA-1-GLOBULIN 0.5 g/dL (0.0-0.4); *SPE ALPHA-2-GLOBULIN 1.2 g/dL (0.4-1.0); *SPE BETA GLOBULIN 0.7 g/dL (0.7-1.3); *SPE GLOBULIN, TOTAL 4.1 g/dL (2.2-3.9); *SPE M-SPIKE Not Observed g/dL (Not Observed); *SPE PROTEIN TOTAL 6.6 g/dL (6.0-8.5); *SPEGAMMA GLOBULIN 1.6 g/dL (0.4-1.8); PTH, INTACT 122 pg/mL (15-65)
== END 2016-12-26 12:13 | disposition left against medical advice (07) | DRG 383 ==
LOC: ER 21:05 → TELE 22:55 → MED 12-20 10:08
PROVIDERS: ADMIT Nurse Practitioner Acute Care; ATTEND Nurse Practitioner Acute Care
DX: L03.116 Cellulitis of left lower limb (principal); I21.4 Non-ST elevation (NSTEMI) myocardial infarction; I50.31 Acute diastolic (congestive) heart failure; N17.9 Acute kidney failure, unspecified; E66.01 Morbid (severe) obesity due to excess calories; I11.0 Hypertensive heart disease with heart failure; E87.6 Hypokalemia; E78.5 Hyperlipidemia, unspecified; F17.210 Nicotine dependence, cigarettes, uncomplicated; I25.10 Atherosclerotic heart disease of native coronary artery without angina pectoris; K76.0 Fatty (change of) liver, not elsewhere classified; N40.0 Benign prostatic hyperplasia without lower urinary tract symptoms; R31.29 Other microscopic hematuria; Z95.1 Presence of aortocoronary bypass graft; E88.09 Other disorders of plasma-protein metabolism, not elsewhere classified; Z68.41 Body mass index [BMI] 40.0-44.9, adult; M19.90 Unspecified osteoarthritis, unspecified site; E11.9 Type 2 diabetes mellitus without complications; I25.2 Old myocardial infarction; T50.2X5A Adverse effect of carbonic-anhydrase inhibitors, benzothiadiazides and other diuretics, initial encounter; Y92.89 Other specified places as the place of occurrence of the external cause; N05.9 Unspecified nephritic syndrome with unspecified morphologic changes
CPT/HCPCS: 36415; 71010-TC; 73120-TC; 73700-TC; 80048-TC; 80053-TC; 80061-TC; 80076-TC; 80202-TC; 81000-TC; 82550-TC; 82570-TC; 83605-TC; 83735-TC; 83970; 84100-TC; 84153-TC; 84154-TC; 84155; 84155-TC; 84165; 84300-TC; 84443-TC; 84484-TC; 85025-TC; 85730-TC; 86060; 86160; 86162; 87040-TC; 87081-TC; 87086-TC; 93307-TC; 93971-TC; 97001-TC; A4216; A4606; J0690; J1650; J1940; J1956; J3370; J3490; J7050; J7060; Z7610